=== PATIENT | male | born 1990 | race Caucasian/White ===

== ENCOUNTER 2016-05-02 15:15 | Emergency (ER) | payer OTHER ==
[~2016-05-02 15:15] MED LIST: TRAZ50TA4 PO; ZOLO50TA PO; no home medications
--- NOTE | 2016-05-02 16:04 | REP ---
Clinical: Pain . Technique: AP, lateral, bilateral oblique views right foot . Findings: The osseous structures and joint spaces are intact and normal. There is no evidence for acute fracture or dislocation. Surrounding soft tissues are unremarkable. No subcutaneous emphysema or radiodense foreign body. Impression: Normal examination. No acute fracture or dislocation. Signed by Chris Petty MD 05/02/2016 03:56 P
[2016-05-02] MEDS ORDERED: CEPHALEXIN 250 MG CAP As Ordered ONE (17:28)
[2016-05-02] MEDS ORDERED: IBUPROFEN 600 MG TAB As Ordered ONE (17:28)
--- NOTE | 2016-05-02 17:43 | EDDOCDS ---
Nurse's Notes [facility] Name: Pranav Snow Age: 25 yrs Sex: Male : 1990 Arrival Date: 05/02/2016 Time: 15:15 Bed Triage 3 Private MD: No Pcp Diagnosis: Pain in foot and toes-ONYCHOMYCOSIS RIGHT 2ND TOENAIL;Ingrowing nail Presentation: 05/02 15:19 Presenting complaint: Patient states: right foot pain for 2 months. worse today. 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 Adult Sepsis Screening: The patient does not have new or worsening altered mentation. Patient's respiratory rate is less than 22. Systolic blood pressure is greater than 100. Patient has a qSOFA score of 0- Negative Sepsis Screen. Suicide/Homicide risk assessment- the patient denies having any suicidal and/or homicidal ideations and does not present with any other emotional, behavioral or mental health complaints. Status: Patient is not a food service representative or dependent. Transition of care: patient was not received from another setting of care. 15:19 Acuity: PATRICIA Level 4 [facility] 15:19 Method Of Arrival: Walkin/Carried/Asstd srm Triage Assessment: 15:20 General: Appears in no apparent distress, Behavior is appropriate for age, cooperative. srm Pain: Pain currently is 7 out of 10 on a pain scale. HIV screening NA for this visit Offered previously. Historical: - Allergies: no known allergies; - Home Meds: 1. none - PMHx: none; - PSHx: none; - Social history: Smoking status: Patient uses tobacco products, current every day smoker. No barriers to communication noted, The patient speaks fluent Peruvian, Speaks appropriately for age. - Family history: Not pertinent. - : The pt / caregiver states he / she is not on anticoagulants. Home medication list is obtained from the patient. - Exposure Risk Screening:: None identified. Screenin:39 Screening information is obtained from the patient. Fall risk: No risks identified. jf3 Assistance ADL's: requires no assistance with activities of daily living. Assistance ADL's: requires no assistance with activities of daily living. Abuse/DV Screen: The patient / caregiver reports he/she is: not in a situation that causes fear, pain or injury. Nutritional screening: No deficits noted. Advance Directives: There is no active DNR order. home support is adequate. Assessment: 17:39 General: Appears in no apparent distress, comfortable, Behavior is cooperative. Pain: jf3 Location: right foot Pain currently is 0 out of 10 on a pain scale. Neurological: Level of Consciousness is awake, alert, Oriented to person, place, time. Cardiovascular: Capillary refill < 3 seconds Chest pain is denied. Respiratory: Airway is patent Respiratory effort is even, unlabored, Respiratory pattern is regular, symmetrical, Denies shortness of breath. Derm: Skin is normal. Vital Signs: 15:19 BP 147 / 81; Pulse 78; Resp 18; Temp 97.9(O); Pulse Ox 100% on R/A; Weight 117.93 kg ct3 (R); Height 6 ft. 4 in. (193.04 cm) (R); Pain 7/10; 17:39 BP 134 / 84; Pulse 58; Resp 16; Temp 97.7(TE); Pulse Ox 100% on R/A; Pain 0/10; jf3 15:19 Body Mass Index 31.65 (117.93 kg, 193.04 cm) ct3 Vitals: 15:19 Log In Time: May 02, 2016 at 15:17. ct3 ED Course: 15:16 Patient visited by Alisia Bryan PCA. ct3 15:16 Patient moved to Waiting ct3 15:18 No Pcp is Private Physician. ct3 15:20 Triage Initiated srm 15:20 Patient moved to Pre RCE ct3 16:22 Foot, Complete Returned. EDMS 16:54 Patient moved to Triage 3 kc3 16:57 Colten Silverman RPA-C is PHCP. ck7 16:57 Hazel Munoz MD is Attending Physician. ck7 16:58 Patient visited by Elizabet Mata PCA. jb5 17:08 Patient visited by Colten Silverman RPA-C. ck7 17:24 Arun Hollins DPM is Referral Physician. ck7 17:24 Jesus Asif DPM is Referral Physician. ck7 17:39 The patient / caregiver is instructed regarding the plan of care and ED course. jf3 17:39 No IV's were initiated during this patient's visit. No procedures done that require 3 assistance. 17:41 [facility] Payment Agreement was scanned into [employer] and attached to record. gjb Administered Medications: 17:31 Drug: Cephalexin 500 mg [cephalexin 250 mg capsule (2 caps)] Route: PO; jf3 17:31 Drug: Ibuprofen 600 mg [ibuprofen 600 mg tablet (1 tabs)] Route: PO; jf3 Order Results: Radiology Order: Foot, Complete Test: Foot, Complete REASON FOR EXAMINATION: RIGHT FOOT PAIN; Clinical: Pain .; ; Technique: AP, lateral, bilateral oblique views right foot .; ; Findings: The osseous structures and joint spaces are intact and normal. There; is no evidence for acute fracture or dislocation. Surrounding soft tissues are; unremarkable. No subcutaneous emphysema or radiodense foreign body.; ; Impression:; Normal examination. No acute fracture or dislocation.; ; ; Signed by; Chris Petty MD 05/02/2016 03:56 P; Outcome: 17:28 Discharge ordered by Provider. ck7 17:41 Discharge Assessment: Patient awake, alert and oriented x 3. No cognitive and/or jf3 functional deficits noted. Patient verbalized understanding of disposition instructions. patient administered narcotics - no. The following High Risk Discharge criteria are identified: None. Discharged to home ambulatory. Condition: good. Discharge instructions given to patient, Instructed on discharge instructions, follow up and referral plans. medication usage, Demonstrated understanding of instructions, medications, Pt was receptive of discharge instructions/ teaching. No special radiology studies were completed. Property :Personal belongings accompany Pt. 17:41 Patient left the ED. jf3 Signatures: Dispatcher [employer] EDMS Shakila Segovia, RN RN Elizabet Louise, PATENT LAWYER PATENT LAWYER jb5 Alisia Bryan, PATENT LAWYER PATENT LAWYER ct3 Colten Silverman, RPA-C RPA-Cck7 Kesha Chawla RN RN kc3 Darwin Martino,COLT RN jf3 Michelle Awan [facility] Corrections: (The following items were deleted from the chart) 15:21 15:19 Presenting complaint: Patient states: right foot pain for 2 months. worse today. 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 srm MTDD
--- NOTE | 2016-05-02 17:43 | EDDOCDS ---
Physician Documentation [facility] Name: Pranav Snow Age: 25 yrs Sex: Male : 1990 Arrival Date: 05/02/2016 Time: 15:15 Bed Triage 3 Private MD: No Pcp Disposition: 05/02/16 17:28 Discharged to Home/Self Care. Impression: Ingrowing nail, Pain in foot and toes - ONYCHOMYCOSIS RIGHT 2ND TOENAIL. - Condition is Stable. - Discharge Instructions: Ingrown Toenail. - Prescriptions for Keflex 500 mg Oral Capsule - take 1 capsule by ORAL route every 6 hours for 10 days; 40 capsule. - Medication Reconciliation, Local Pharmacy Hours form. - Follow up: Arun Hollins DPM; When: 2 - 3 days; Reason: Recheck today's complaints, Continuance of care. Follow up: Jesus Asif DPM; When: 2 - 3 days; Reason: Recheck today's complaints, Continuance of care. - Problem is new. - Symptoms have improved. - Notes: FOLLOW UP WITH PODIATRY FOR FURTHER EVALUATION, USE MEDICATION INSTRUCTED, USE TYLENOL AND MOTRIN INSTRUCTED Historical: - Allergies: no known allergies; - Home Meds: 1. none - PMHx: none; - PSHx: none; - Social history: Smoking status: Patient uses tobacco products, current every day smoker. No barriers to communication noted, The patient speaks fluent Syriac, Speaks appropriately for age. - Family history: Not pertinent. - : The pt / caregiver states he / she is not on anticoagulants. Home medication list is obtained from the patient. - Exposure Risk Screening:: None identified. Vital Signs: 05/02 15:19 BP 147 / 81; Pulse 78; Resp 18; Temp 97.9(O); Pulse Ox 100% on R/A; Weight 117.93 kg / ct3 259.99 lbs (R); Height 6 ft. 4 in. (193.04 cm) (R); Pain 7/10; 17:39 BP 134 / 84; Pulse 58; Resp 16; Temp 97.7(TE); Pulse Ox 100% on R/A; Pain 0/10; jf3 15:19 Body Mass Index 31.65 (117.93 kg, 193.04 cm) ct3 MDM: 15:35 Foot, Complete Ordered. EDMS 17:10 Foot, Complete Reviewed. ck7 17:24 Cephalexin 500 mg PO once ordered. ck7 17:24 Ibuprofen 600 mg PO once ordered. ck7 17:41 [place] [place] Payment Agreement was scanned into [employer] and attached to record. luis 17:41 Financial registration complete. gjb Administered Medications: 17:31 Drug: Cephalexin 500 mg [cephalexin 250 mg capsule (2 caps)] Route: PO; jf3 17:31 Drug: Ibuprofen 600 mg [ibuprofen 600 mg tablet (1 tabs)] Route: PO; jf3 Signatures: Dispatcher [employer] EDMS Shakila Segovia RN RN srm Kwaczala, Christopher, RPA-C RPA-Cck7 Darwin Martino RN RN jf3 Beck, Gabriela gjb The chart was reviewed and I authenticate all verbal orders and agree with the evaluation and treatment provided.Attachments: 17:41 [place] [place] Payment Agreement gjb MTDD
--- NOTE | 2016-05-04 18:42 | EDDOCDS ---
Physician Documentation [facility] Name: Pranav Snow Age: 25 yrs Sex: Male : 1990 Arrival Date: 05/02/2016 Time: 15:15 Bed Triage 3 Private MD: No Pcp Disposition: 05/02/16 17:28 Discharged to Home/Self Care. Impression: Ingrowing nail, Pain in foot and toes - ONYCHOMYCOSIS RIGHT 2ND TOENAIL. - Condition is Stable. - Discharge Instructions: Ingrown Toenail. - Prescriptions for Keflex 500 mg Oral Capsule - take 1 capsule by ORAL route every 6 hours for 10 days; 40 capsule. - Medication Reconciliation, Local Pharmacy Hours form. - Follow up: Arun Hollins DPM; When: 2 - 3 days; Reason: Recheck today's complaints, Continuance of care. Follow up: Jesus Asif DPM; When: 2 - 3 days; Reason: Recheck today's complaints, Continuance of care. - Problem is new. - Symptoms have improved. - Notes: FOLLOW UP WITH PODIATRY FOR FURTHER EVALUATION, USE MEDICATION INSTRUCTED, USE TYLENOL AND MOTRIN INSTRUCTED Historical: - Allergies: no known allergies; - Home Meds: 1. none - PMHx: none; - PSHx: none; - Social history: Smoking status: Patient uses tobacco products, current every day smoker. No barriers to communication noted, The patient speaks fluent Danish, Speaks appropriately for age. - Family history: Not pertinent. - : The pt / caregiver states he / she is not on anticoagulants. Home medication list is obtained from the patient. - Exposure Risk Screening:: None identified. Vital Signs: 05/02 15:19 BP 147 / 81; Pulse 78; Resp 18; Temp 97.9(O); Pulse Ox 100% on R/A; Weight 117.93 kg / ct3 259.99 lbs (R); Height 6 ft. 4 in. (193.04 cm) (R); Pain 7/10; 17:39 BP 134 / 84; Pulse 58; Resp 16; Temp 97.7(TE); Pulse Ox 100% on R/A; Pain 0/10; jf3 15:19 Body Mass Index 31.65 (117.93 kg, 193.04 cm) ct3 MDM: 15:35 Foot, Complete Ordered. EDMS 17:10 Foot, Complete Reviewed. ck7 17:24 Cephalexin 500 mg PO once ordered. ck7 17:24 Ibuprofen 600 mg PO once ordered. ck7 17:41 [facility] Payment Agreement was scanned into [employer] and attached to record. b : Financial registration complete. gjb 05/03 09:00 T-Sheet-- Draft Copy was scanned into [employer] and attached to record. gb Administered Medications: 05/02 17:31 Drug: Cephalexin 500 mg [cephalexin 250 mg capsule (2 caps)] Route: PO; jf3 17:31 Drug: Ibuprofen 600 mg [ibuprofen 600 mg tablet (1 tabs)] Route: PO; jf3 Signatures: Dispatcher [employer] EDMS Shakila Segovia RN RN [facility] Jeanette Smith, Reg Reg gb Coltne Silverman, RPA-C RPA-Cck7 Darwin Martino RN RN jf3 Michelle Awan [facility] The chart was reviewed and I authenticate all verbal orders and agree with the evaluation and treatment provided.Attachments: :41 [facility] Payment Agreement [facility] 05/03 09:00 T-Sheet-- Draft Copy gb Chart Complete MTDD
--- NOTE | 2016-05-04 18:42 | EDDOCDS ---
Nurse's Notes [facility] Name: Pranav Snow Age: 25 yrs Sex: Male : 1990 Arrival Date: 05/02/2016 Time: 15:15 Bed Triage 3 Private MD: No Pcp Diagnosis: Pain in foot and toes-ONYCHOMYCOSIS RIGHT 2ND TOENAIL;Ingrowing nail Presentation: 05/02 15:19 Presenting complaint: Patient states: right foot pain for 2 months. worse today. 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 Adult Sepsis Screening: The patient does not have new or worsening altered mentation. Patient's respiratory rate is less than 22. Systolic blood pressure is greater than 100. Patient has a qSOFA score of 0- Negative Sepsis Screen. Suicide/Homicide risk assessment- the patient denies having any suicidal and/or homicidal ideations and does not present with any other emotional, behavioral or mental health complaints. Status: Patient is not a sales & service associate or dependent. Transition of care: patient was not received from another setting of care. 15:19 Acuity: PATRICIA Level 4 [facility] 15:19 Method Of Arrival: Walkin/Carried/Asstd srm Triage Assessment: 15:20 General: Appears in no apparent distress, Behavior is appropriate for age, cooperative. srm Pain: Pain currently is 7 out of 10 on a pain scale. HIV screening NA for this visit Offered previously. Historical: - Allergies: no known allergies; - Home Meds: 1. none - PMHx: none; - PSHx: none; - Social history: Smoking status: Patient uses tobacco products, current every day smoker. No barriers to communication noted, The patient speaks fluent Italian, Speaks appropriately for age. - Family history: Not pertinent. - : The pt / caregiver states he / she is not on anticoagulants. Home medication list is obtained from the patient. - Exposure Risk Screening:: None identified. Screenin:39 Screening information is obtained from the patient. Fall risk: No risks identified. jf3 Assistance ADL's: requires no assistance with activities of daily living. Assistance ADL's: requires no assistance with activities of daily living. Abuse/DV Screen: The patient / caregiver reports he/she is: not in a situation that causes fear, pain or injury. Nutritional screening: No deficits noted. Advance Directives: There is no active DNR order. home support is adequate. Assessment: 17:39 General: Appears in no apparent distress, comfortable, Behavior is cooperative. Pain: jf3 Location: right foot Pain currently is 0 out of 10 on a pain scale. Neurological: Level of Consciousness is awake, alert, Oriented to person, place, time. Cardiovascular: Capillary refill < 3 seconds Chest pain is denied. Respiratory: Airway is patent Respiratory effort is even, unlabored, Respiratory pattern is regular, symmetrical, Denies shortness of breath. Derm: Skin is normal. Vital Signs: 15:19 BP 147 / 81; Pulse 78; Resp 18; Temp 97.9(O); Pulse Ox 100% on R/A; Weight 117.93 kg ct3 (R); Height 6 ft. 4 in. (193.04 cm) (R); Pain 7/10; 17:39 BP 134 / 84; Pulse 58; Resp 16; Temp 97.7(TE); Pulse Ox 100% on R/A; Pain 0/10; jf3 15:19 Body Mass Index 31.65 (117.93 kg, 193.04 cm) ct3 Vitals: 15:19 Log In Time: May 02, 2016 at 15:17. ct3 ED Course: 15:16 Patient visited by Alisia Bryan PCA. ct3 15:16 Patient moved to Waiting ct3 15:18 No Pcp is Private Physician. ct3 15:20 Triage Initiated srm 15:20 Patient moved to Pre RCE ct3 16:22 Foot, Complete Returned. EDMS 16:54 Patient moved to Triage 3 kc3 16:57 Colten Silverman RPA-C is PHCP. ck7 16:57 Hazel Munoz MD is Attending Physician. ck7 16:58 Patient visited by Elizabet Mata PCA. jb5 17:08 Patient visited by Colten Silverman RPA-C. ck7 17:24 Arun Hollins DPM is Referral Physician. ck7 17:24 Jesus Asif DPM is Referral Physician. ck7 17:39 The patient / caregiver is instructed regarding the plan of care and ED course. jf3 17:39 No IV's were initiated during this patient's visit. No procedures done that require 3 assistance. 17:41 [facility] Payment Agreement was scanned into [employer] and attached to record. gjb 17:43 Patient name changed from Pranav\S\\S\Brown\S\ to Pranav\S\ \S\Brown. EDMS 05/03 09:00 T-Sheet-- Draft Copy was scanned into [employer] and attached to record. gb Administered Medications: 05/02 17:31 Drug: Cephalexin 500 mg [cephalexin 250 mg capsule (2 caps)] Route: PO; jf3 17:31 Drug: Ibuprofen 600 mg [ibuprofen 600 mg tablet (1 tabs)] Route: PO; jf3 Order Results: Radiology Order: Foot, Complete Test: Foot, Complete REASON FOR EXAMINATION: RIGHT FOOT PAIN; Clinical: Pain .; ; Technique: AP, lateral, bilateral oblique views right foot .; ; Findings: The osseous structures and joint spaces are intact and normal. There; is no evidence for acute fracture or dislocation. Surrounding soft tissues are; unremarkable. No subcutaneous emphysema or radiodense foreign body.; ; Impression:; Normal examination. No acute fracture or dislocation.; ; ; Signed by; Chris Petty MD 05/02/2016 03:56 P; Outcome: 17:28 Discharge ordered by Provider. ck7 17:41 Discharge Assessment: Patient awake, alert and oriented x 3. No cognitive and/or jf3 functional deficits noted. Patient verbalized understanding of disposition instructions. patient administered narcotics - no. The following High Risk Discharge criteria are identified: None. Discharged to home ambulatory. Condition: good. Discharge instructions given to patient, Instructed on discharge instructions, follow up and referral plans. medication usage, Demonstrated understanding of instructions, medications, Pt was receptive of discharge instructions/ teaching. No special radiology studies were completed. Property :Personal belongings accompany Pt. 17:41 Patient left the ED. jf3 Signatures: Dispatcher [employer] EDMA Shakila Segovia, RN RN Jeanette Ventura, Reg Reg gb Elizabet Mata, WATCH MANUFACTURING SUPERVISOR WATCH MANUFACTURING SUPERVISOR jb5 Alisia Bryan, WATCH MANUFACTURING SUPERVISOR WATCH MANUFACTURING SUPERVISOR ct3 Colten Silverman, RPA-C RPA-Cck7 Kesha Chawla RN RN kc3 Darwin Martino RN RN jf3 Michelle Awan gj Corrections: (The following items were deleted from the chart) 15:21 15:19 Presenting complaint: Patient states: right foot pain for 2 months. worse today. 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 srm Chart Complete MTDD
--- NOTE | 2016-05-04 18:43 | EDDOCDS ---
Physician Documentation [facility] Name: Pranav Snow Age: 25 yrs Sex: Male : 1990 Arrival Date: 05/02/2016 Time: 15:15 Bed Triage 3 Private MD: No Pcp Disposition: 05/02/16 17:28 Discharged to Home/Self Care. Impression: Ingrowing nail, Pain in foot and toes - ONYCHOMYCOSIS RIGHT 2ND TOENAIL. - Condition is Stable. - Discharge Instructions: Ingrown Toenail. - Prescriptions for Keflex 500 mg Oral Capsule - take 1 capsule by ORAL route every 6 hours for 10 days; 40 capsule. - Medication Reconciliation, Local Pharmacy Hours form. - Follow up: Arun Hollins DPM; When: 2 - 3 days; Reason: Recheck today's complaints, Continuance of care. Follow up: Jesus Asif DPM; When: 2 - 3 days; Reason: Recheck today's complaints, Continuance of care. - Problem is new. - Symptoms have improved. - Notes: FOLLOW UP WITH PODIATRY FOR FURTHER EVALUATION, USE MEDICATION INSTRUCTED, USE TYLENOL AND MOTRIN INSTRUCTED Historical: - Allergies: no known allergies; - Home Meds: 1. none - PMHx: none; - PSHx: none; - Social history: Smoking status: Patient uses tobacco products, current every day smoker. No barriers to communication noted, The patient speaks fluent Italian, Speaks appropriately for age. - Family history: Not pertinent. - : The pt / caregiver states he / she is not on anticoagulants. Home medication list is obtained from the patient. - Exposure Risk Screening:: None identified. Vital Signs: 05/02 15:19 BP 147 / 81; Pulse 78; Resp 18; Temp 97.9(O); Pulse Ox 100% on R/A; Weight 117.93 kg / ct3 259.99 lbs (R); Height 6 ft. 4 in. (193.04 cm) (R); Pain 7/10; 17:39 BP 134 / 84; Pulse 58; Resp 16; Temp 97.7(TE); Pulse Ox 100% on R/A; Pain 0/10; jf3 15:19 Body Mass Index 31.65 (117.93 kg, 193.04 cm) ct3 MDM: 15:35 Foot, Complete Ordered. EDMS 17:10 Foot, Complete Reviewed. ck7 17:24 Cephalexin 500 mg PO once ordered. ck7 17:24 Ibuprofen 600 mg PO once ordered. ck7 17:41 [facility] Payment Agreement was scanned into [employer] and attached to record. b : Financial registration complete. gjb 05/03 09:00 T-Sheet-- Draft Copy was scanned into [employer] and attached to record. gb Administered Medications: 05/02 17:31 Drug: Cephalexin 500 mg [cephalexin 250 mg capsule (2 caps)] Route: PO; jf3 17:31 Drug: Ibuprofen 600 mg [ibuprofen 600 mg tablet (1 tabs)] Route: PO; jf3 Signatures: Dispatcher [employer] EDMS Shakila Segovia RN RN [facility] Jeanette Smith, Reg Reg gb Colten Silverman, RPA-C RPA-Cck7 Darwin Martino RN RN jf3 Michelle Awan [facility] The chart was reviewed and I authenticate all verbal orders and agree with the evaluation and treatment provided.Attachments: :41 [facility] Payment Agreement [facility] 05/03 09:00 T-Sheet-- Draft Copy gb Chart Complete MTDD
== END 2016-05-02 17:41 | disposition home or self-care (01) ==
LOC: M ED 15:15
DX: L60.0 Ingrowing nail (principal); B35.1 Tinea unguium; F17.210 Nicotine dependence, cigarettes, uncomplicated

== ENCOUNTER 2016-10-23 17:04 | Emergency (ER) | payer OTHER ==
[~2016-10-23] VITALS: Ht 193 cm; Wt 119.0 kg
[~2016-10-23 17:04] MED LIST changes: +TRAZ50TA11 PO; -TRAZ50TA4 PO
[2016-10-23] MEDS ORDERED: [UNRECOGNIZED DRUG - CODE] PO (17:57)
[2016-10-23] MEDS ORDERED: FLON1SPR (17:57)
[2016-10-23] MEDS ORDERED: ZYRT10TA2 PO (17:57)
[2016-10-23 18:02] VITALS: BP 123/79
== END 2016-10-23 18:04 | disposition home or self-care (01) ==
LOC: M ED 17:04
DX: J20.8 Acute bronchitis due to other specified organisms (principal); J30.9 Allergic rhinitis, unspecified; F17.210 Nicotine dependence, cigarettes, uncomplicated; Z79.899 Other long term (current) drug therapy

== ENCOUNTER 2016-11-05 16:48 | Emergency (ER) | payer OTHER ==
[~2016-11-05] VITALS: Ht 193 cm; Wt 118.0 kg
[~2016-11-05 16:48] MED LIST changes: +FLON1SPR; +ZYRT10TA2 PO; +[UNRECOGNIZED DRUG - CODE] PO
[2016-11-05 16:49] VITALS: BP 135/76
[2016-11-05] MEDS ORDERED: PENI500T (16:54)
[2016-11-05] MEDS ORDERED: ULTR50TA8 PO (17:10)
[2016-11-05] MEDS ORDERED: PENI500T PO (17:10)
== END 2016-11-05 17:20 | disposition home or self-care (01) ==
LOC: M ED 16:48
DX: K02.9 Dental caries, unspecified (principal); F17.210 Nicotine dependence, cigarettes, uncomplicated